=== PATIENT | male | born 1945 | race Hispanic/Latino ===

== ENCOUNTER 2018-05-17 07:42 | Day surgery (SDC) | payer MEDICARE, OTHER ==
[2018-05-17 09:35] VITALS: PULSE 73; RESP 18; TEMP 99.3; O2SAT 98
[2018-05-17 09:36] VITALS: BMI 28.6
[2018-05-17] MEDS ORDERED: Propofol 10 mg/ml Inj (20 ML) ONE (09:44)
--- NOTE | 2018-05-17 10:12 | CP.SDSHP ---
Same Day Surgery H & P - History Proposed Procedure: EGD Pre-Op Diagnosis: GERD - Previous Medical/Surgical History Cardiac: Hypertension - Allergies Allergies: Allergies No Known Allergies Allergy (Verified 07/14/15 09:36) - Physical Exam General Appearance: NAD Vital Signs: Vital Signs 05/17/18 09:20 Temperature 99.3 F Pulse Rate 73 Respiratory 18 Rate Blood Pressure 127/68 O2 Sat by Pulse 98 Oximetry Mental Status: Alert & Oriented x3 Neuro: WNL Heart: WNL Lungs: WNL GI: WNL - {Optional Preform as Required} Abdomen: WNL - Impression Pt. Evaluated Today:Candidate for Anesthesia & Procedure: Yes - Date & Time Date: 05/17/18 Time: 10:12 Short Stay Discharge - Short Stay Discharge Admitting Diagnosis/Reason for Visit: GERD Disposition: HOME/ ROUTINE
[2018-05-17] MEDS ORDERED: Lactated Ringer's 1,000 ML IV ONE (10:15)
[2018-05-17 11:23] VITALS: BP 119/69
== END 2018-05-17 11:28 | disposition home or self-care (01) ==
LOC: C.ENDO 07:42
PROVIDERS: ATTEND Internal Medicine Gastroenterology
DX: K21.0 Gastro-esophageal reflux disease with esophagitis (principal); K22.8 Other specified diseases of esophagus; K44.9 Diaphragmatic hernia without obstruction or gangrene; K29.50 Unspecified chronic gastritis without bleeding; I10 Essential (primary) hypertension; Z85.46 Personal history of malignant neoplasm of prostate; Z90.79 Acquired absence of other genital organ(s)
CPT/HCPCS: 43239; 88305; 88312; 88342; J2704; J7120